=== PATIENT | female | born 1955 | race Hispanic/Latino ===

== ENCOUNTER 2017-09-04 12:25 | Outpatient (CLI) | payer MEDICARE, OTHER ==
--- NOTE | 2017-09-05 15:50 | Magnetic Resonance Report ---
RIGHT BREAST MRI WITHOUT AND WITH CONTRAST: 09/04/17 12:25:00 CLINICAL: Breast cancer survivor status post left mastectomy with implant reconstruction and status post right reduction mammoplasty. Right breast pain. COMPARISON:10/26/11. TECHNIQUE: Axial 1.0-mm T1 without, axial high resolution 2.0-mm T2 and axial 1.0-mm dynamic Vibrant high-resolution postcontrast T1 fat saturation sequences on a 1.5 [employer] magnet. The examination was performed with an 8 channel dedicated [employer] breast coil. Post processing with CAD and subtraction was performed on an [employer] workstation. 24.0 cc of Multihance was injected without incident for the contrast portion of the exam. Consent was obtained prior to the administration of the contrast. FINDINGS: Mild background parenchymal enhancement. No mass or suspicious enhancement. Benign fat necrosis with a cluster of oil cysts or entrapped fat with mild benign surrounding enhancement at 12 o'clock approximately 5 cm from the nipple. This area measures approximately 6 x 3 x 5 cm. A more posterior oil cyst or fatty mass with peripheral enhancement measures 10 x 12 x 7 mm at 12 o'clock approximately 10 cm from the nipple. No suspicious lymph nodes. IMPRESSION: Benign fat necrosis of the upper breast at 12 o'clock and no suspicion of malignancy. Recommend annual screening mammography of the right breast. She is due for a right mammogram unless she has had one elsewhere since 11/26/13. BI-RADS 2 - - Benign
== END 2017-09-04 12:26 | disposition home or self-care (01) ==
LOC: SPVIMAG 12:25
PROVIDERS: ATTEND Internal Medicine Hematology & Oncology
DX: N60.01 Solitary cyst of right breast (principal); N64.4 Mastodynia; N64.1 Fat necrosis of breast; Z85.3 Personal history of malignant neoplasm of breast; Z90.12 Acquired absence of left breast and nipple; Z98.82 Breast implant status; Z98.890 Other specified postprocedural states
CPT/HCPCS: 0159T; A9577; C8905

== ENCOUNTER 2018-04-10 09:49 | Outpatient (CLI) | payer MEDICARE, OTHER ==
[2018-04-10 11:32] LABS: Blood Urea Nitrogen 11 mg/dL (7-17)
--- NOTE | 2018-04-10 13:57 | Mammography Report ---
BONE DEXA:04/10/18 09:49:00 CLINICAL: Postmenopausal and history of left breast cancer. No comparison. TECHNIQUE: Two site bone DEXA performed on an Hologic scanner. FINDINGS: The average BMD of the lumbar spine L1-L4 is 1.247g/cm squared with a T-score of +1.8 and a Z-score of +3.5. The average BMD of the left hip is 1.058g/cm squared with a T-score of +0.9 and a Z-score of +2.1. IMPRESSION: WHO classification: Normal with average fracture risk based on both spine and left hip measurements. RECOMMENDATION: Clinical correlation and routine screening. DEFINITIONS: BMD = Bone Mineral Density T-score = BMD related to mean peak bone mass of young adult (mean expressed in Standard Deviation) Z-score = Age matched BMD expressed in SD World Health Organization (WHO) Diagnostic Criteria Normal T-score > -1 SD Osteopenia T-score between -1 and -2.4 SD Osteoporosis T-score -2.5 SD or below NOTE: BMD is not the only risk factor for fracture. One should also consider factors such as the patient's age, risk of falling, previous osteoporotic fracture, family history of osteoporotic fractures, current smoker, and low body weight. Z-scores are not calculated if >80 years of age.
--- NOTE | 2018-04-10 14:46 | Magnetic Resonance Report ---
MR abdomen with and without contrast: History: Malignant neoplasm of breast. Comparison: No relevant comparison at this facility. FINDINGS: Multiplanar and multisequence MRI of the liver with and without gadolinium is submitted. Signal from the liver is homogeneous without evidence for mass or cyst. Biliary radicles are within normal limits. Remaining visualized solid abdominal organs are within normal limits. No areas of abnormal enhancement are noted. No areas of abnormal signal are appreciated. No free fluid is noted. IMPRESSION: Unremarkable MRI of the abdomen with and without gadolinium. No evidence for an acute process or metastatic disease.
== END 2018-04-10 09:50 | disposition home or self-care (01) ==
LOC: SPVIMAG 09:49 → MAMMO 09:50
PROVIDERS: ATTEND Internal Medicine Hematology & Oncology
DX: D05.12 Intraductal carcinoma in situ of left breast (principal); R10.9 Unspecified abdominal pain; Z78.0 Asymptomatic menopausal state
CPT/HCPCS: 36415; 74183; 77080; 82565; 84520; A9577

== ENCOUNTER 2019-10-16 10:23 | Outpatient (CLI) | payer MEDICARE, OTHER ==
--- NOTE | 2019-10-22 09:09 | Mammography Report ---
DIGITAL SCREENING MAMMOGRAM WITH CAD, 10/16/2019 INDICATION: Routine screening mammography. Breast cancer survivor status post left mastectomy with im plant reconstruction in 2013. TECHNIQUE: Digital bilateral 2D mammography was obtained in the craniocaudal and mediolateral obliq ue projections. This examination was interpreted with the benefit of Computer-Aided Detection analysi s. COMPARISON: 10/09/2018 FINDINGS: Breast Density: The right breast is heterogeneously dense, which may obscure small masses. Benign jessica cifications of the right breast have increased in size and number. The morphology is typical of benig n fat necrosis. A right upper posterior asymmetry on the MLO view is new and requires additional imag ing. The left breast is negative with an intact implant. IMPRESSION: Right asymmetry requiring additional imaging. Recommend recall for right exaggerated CC a nd spot magnification MLO views and right breast ultrasound if needed. Follow up recommendation: Special View: Mag Category 0: Incomplete. Needs additional imaging evaluation and/or prior mammograms for comparison. A "normal" or negative report should not discourage follow up or biopsy of a clinically significant f inding. A written summary of these findings will be mailed to the patient. The patient will be entered into a mammography reporting system which will generate a reminder letter for the patient's next appointmen t at the appropriate interval. The [employer] recommends yearly mammograms starting at age 40 and continuing as l ramiro as a woman is in good health. Breast MRI is recommended for women with an approximate 20-25% or greater lifetime risk of breast cancer, including women with a strong family history of breast or ova natty cancer or who have been treated for Hodgkin's disease. Signer Name: Tawanda Latif MD Signed: 10/22/2019 9:04 AM Workstation Name: [id number]
== END 2019-10-16 10:24 | disposition home or self-care (01) ==
LOC: MAMMO 10:23
PROVIDERS: ATTEND Internal Medicine Hematology & Oncology
DX: Z12.31 Encounter for screening mammogram for malignant neoplasm of breast (principal); Z90.12 Acquired absence of left breast and nipple

== ENCOUNTER 2019-10-31 14:15 | Outpatient (CLI) | payer MEDICARE, OTHER ==
--- NOTE | 2019-10-31 14:56 | Mammography Report ---
DIGITAL RIGHT DIAGNOSTIC MAMMOGRAM WITH CAD, 10/31/2019 INDICATION: ABNORMAL MAMMO. Recall for an upper asymmetry on the MLO view. TECHNIQUE: Digital right mammographic imaging was performed. Magnification views were obtained. This examination was interpreted with the benefit of Computer-aided Detection analysis. COMPARISON: 10/16/2019 and 10/09/2018 Breast Density: The breast is heterogeneously dense, which may obscure small masses. FINDINGS: Exaggerated CC and spot magnification MLO views were performed and are negative. Satisfacto ry effacement of asymmetry on the MLO view. Benign upper fat necrosis with calcifications. IMPRESSION: No mammographic evidence of malignancy. Follow up recommendation: Routine BI-RADS Category 2: Benign. A "normal" or negative report should not discourage follow up or biopsy of a clinically significant f inding. A written summary of these findings will be mailed to the patient. The patient will be entered into a mammography reporting system which will generate a reminder letter for the patient's next appointmen t at the appropriate interval. According to the [employer], yearly mammograms are recommended starting at age 40 and continuing as long as a woman is in good health. Breast MRI is recommended for women with an kelsy roximately 20-25% or greater lifetime risk of breast cancer, including women with a strong family his tory of breast or ovarian cancer and women who have been treated for Hodgkin's disease. Signer Name: Tawanda Latif MD Signed: 10/31/2019 2:52 PM Workstation Name: [id number]
== END 2019-10-31 14:16 | disposition home or self-care (01) ==
LOC: SPVWC 14:15 → MAMMO 14:15 → SPVWC 14:16
PROVIDERS: ATTEND Internal Medicine Hematology & Oncology
DX: D05.12 Intraductal carcinoma in situ of left breast (principal); Z85.3 Personal history of malignant neoplasm of breast; R10.9 Unspecified abdominal pain

== ENCOUNTER 2020-10-28 14:18 | Outpatient (CLI) | payer MEDICARE, OTHER ==
--- NOTE | 2020-10-28 15:18 | Mammography Report ---
Right DIGITAL SCREENING MAMMOGRAM WITH CAD HISTORY: SCREENING MAMMOGRAM TECHNIQUE: Routine digital mammographic imaging performed. This examination was interpreted with timothy sue benefit of Computer-aided Detection analysis. COMPARISON: 10/31/2019, 10/16/2019, 10/09/2018. FINDINGS: Breast Density: scattered fibroglandular appearance of the breast tissue. Digital CC and MLO views demonstrate no mammographic evidence of malignancy. Mild reduction changes are noted with associated benign appearing fat necrosis type calcifications. IMPRESSION: No mammographic evidence of malignancy. If the clinical examination remains stable, recommend bilate ral mammogram in approximately one year. BIRADS 2: Benign Finding(s). FURTHER INFORMATION: According to the [employer], yearly mammograms are recommend ed starting at age 40 and continuing as long as a woman is in good health. Clinical Breast Exams shou ld be part of a periodic health exam-about every 3 years for women in their 20s and 30s and every yea r for women 40 and over. Breast self exam is an option for women starting in their 20s. Any breast ch yulia noted on a breast self exam should be reported promptly to the patient's healthcare provider. Br east MRI is recommended for women with an approximately 20-25% or greater lifetime risk of breast can cer, including women with a strong family history of breast or ovarian cancer and women who have been treated for Hodgkin's disease. A negative Mammography report should not discourage follow up or biopsy of a clinically significant f inding and/or abnormality. Dense breast tissue may obscure small neoplasms. The patient will be entered into a reminder system with a target due date for the next screening mamm ogram. Signer Name: Ed Hickman MD Signed: 10/28/2020 3:13 PM Workstation Name: [id number]
== END 2020-10-28 14:19 | disposition home or self-care (01) ==
LOC: SPVWC 14:18
PROVIDERS: ATTEND Internal Medicine Hematology & Oncology
DX: Z12.31 Encounter for screening mammogram for malignant neoplasm of breast (principal); N64.89 Other specified disorders of breast

== ENCOUNTER 2021-09-01 13:36 | Outpatient (CLI) | payer MEDICARE, OTHER ==
--- NOTE | 2021-09-01 14:16 | Mammography Report ---
DIGITAL DIAGNOSTIC MAMMOGRAM WITH CAD , 09/01/2021 CLINICAL INFORMATION / INDICATION: PERSONAL HX OF MALIGNANT NEOPLASM OF BREAST. History of left maste ctomy and right reduction mammoplasty. TECHNIQUE: Digital right mammographic imaging was performed. This examination was interpreted with the benefit of Computer-aided Detection analysis. COMPARISON: Prior mammogram 10/16/2019 and 10/28/2020 FINDINGS: Breast Density: There are scattered areas of fibroglandular density. No dominant mass, suspicious calcifications or architectural distortion in the right breast. Postreduction mammoplasty changes are noted in the right breast. Multiple oils cysts are seen in the superior right breast with associated benign calcifications. Overall, no interval change from prior m ammograms. IMPRESSION: No mammographic evidence of malignancy. Follow up recommendation: Routine yearly BI-RADS Category 2: Benign. A "normal" or negative report should not discourage follow up or biopsy of a clinically significant f inding. A written summary of these findings will be mailed to the patient. The patient will be entered into a mammography reporting system which will generate a reminder letter for the patient's next appointmen t at the appropriate interval. According to the [employer], yearly mammograms are recommended starting at age 40 and continuing as long as a woman is in good health. Breast MRI is recommended for women with an kelsy roximately 20-25% or greater lifetime risk of breast cancer, including women with a strong family his tory of breast or ovarian cancer and women who have been treated for Hodgkin's disease. Signer Name: Lizy Dinero MD Signed: 09/01/2021 2:12 PM Workstation Name: [id number]
== END 2021-09-01 13:37 | disposition home or self-care (01) ==
LOC: SPVWC 13:36
PROVIDERS: ATTEND Internal Medicine Hematology & Oncology
DX: Z51.11 Encounter for antineoplastic chemotherapy (principal); N60.01 Solitary cyst of right breast; D05.12 Intraductal carcinoma in situ of left breast; N63.0 Unspecified lump in unspecified breast; D70.9 Neutropenia, unspecified; G35 Multiple sclerosis; G04.00 Acute disseminated encephalitis and encephalomyelitis, unspecified; R10.9 Unspecified abdominal pain; R14.0 Abdominal distension (gaseous); Z79.01 Long term (current) use of anticoagulants; Z17.0 Estrogen receptor positive status [ER+]; Z85.3 Personal history of malignant neoplasm of breast